=== PATIENT | female | born 1945 | race Two or more races ===

== ENCOUNTER 2019-01-04 17:20 | Inpatient (IN) | payer MEDICARE ==
[~2019-01-04] VITALS: Ht 162.6 cm; Wt 73.0 kg
[2019-01-04] MEDS ORDERED: Aspir-Trin325 MG PO (19:52)
[2019-01-04] MEDS ORDERED: METO50 PO (19:53)
[2019-01-04] MEDS ORDERED: LOSA25 PO (19:53)
[2019-01-04] MEDS ORDERED: CLOP75 PO (19:53)
[2019-01-04] MEDS ORDERED: SIMV40 PO (19:53)
[2019-01-04 22:59] LABS: Source, Urine Clean Catch
[2019-01-04 23:02] LABS: Appearance, Urine Clear (Clear); Bilirubin, Urine Neg (Neg); Blood, Urine 1+ (Neg); Color, Urine Amber (P-Yellow); Glucose Qualitative, Urine Neg (Neg); Ketones, Urine 1+ (Neg); Leukocyte Esterase, Urine 1+ (Neg); Nitrite, Urine Neg (Neg); Protein, Urine 1+ (Neg); Specific Gravity, Urine 1.015 (1.003-1.022); Urobilinogen, Urine 1+ (Normal)
[2019-01-04 23:08] LABS: Red Blood Cells, Urine 0-2 /hpf (0-2); White Blood Cells, Urine 0-2 /hpf (0-5)
[2019-01-04 23:09] LABS: Bacteria Many /hpf; Hyaline Casts 0-2 /lpf (0-2); Mucus Light (0-Heavy); Squamous Epithelial Cells Few /hpf (Few)
[2019-01-05 05:16] LABS: BASOPHILS ABSOLUTE AUTO 0.05 K/mm3 (0.00-0.23); BASOPHILS PERCENT AUTO 0 % (0-2); EOSINOPHILS ABSOLUTE AUTO 0.56 K/mm3 (0.00-0.68); EOSINOPHILS PERCENT AUTO 3 % (0-6); Hematocrit 39.5 % (33.0-51.0); Hemoglobin 12.6 g/dL (11.5-16.0); IMMATURE GRAN PERCENT AUTO 1 % (0-1); LYMPHOCYTES ABSOLUTE AUTO 1.84 K/mm3 (0.84-5.20); LYMPHOCYTES PERCENT AUTO 10 % (21-46); MONOCYTES ABSOLUTE AUTO 1.72 K/mm3 (0.16-1.47); MONOCYTES PERCENT AUTO 10 % (4-13); Mean Corpuscular HGB 31.3 pg (26.0-34.0); Mean Corpuscular HGB Conc 31.9 g/dL (31.5-36.5); Mean Platelet Volume 10.1 fL (9.1-12.4); NEUTROPHILS ABSOLUTE AUTO 13.45 K/mm3 (1.96-9.15); NEUTROPHILS PERCENT AUTO 76 % (41-73); Platelet Count 311 K/mm3 (150-400); RDW Coefficient Variation 14.1 % (11.7-14.2); RDW Standard Deviation 50.7 fL (35.1-46.3); Red Blood Cell Count 4.02 M/mm3 (3.80-5.20); White Blood Cell Count 17.72 K/mm3 (4.00-11.30)
[2019-01-05 05:17] LABS: Mean Corpuscular Volume 98 fL (80-100)
[2019-01-05 05:41] LABS: Anion Gap 7 mmol/L (6-16); Blood Urea Nitrogen 9 mg/dL (8-24); Bun/Creatinine Ratio 15.1 (12.0-20.0); CO2, Blood 24 mmol/L (21-32); Calcium, Blood 9.1 mg/dL (8.5-10.1); Chloride, Blood 103 mmol/L (98-108); Glomerular Filtration Rate >60 (60-); Glucose, Blood 101 mg/dL (70-99); Potassium, Blood 3.8 mmol/L (3.5-5.5); Sodium, Blood 134 mmol/L (136-145)
--- NOTE | 2019-01-05 07:20 | NUR ---
SHIFT SUMMARY PT ARRIVED TO ROOM APPROX 2200. NO C/O PAIN. SAYS SHE GET SOB C MOVEMENT. TELE SHOWED NSR @ 2235 BUT AT 0430 CONVERTED TO A FIB IN THE 140-150'S PER GENERAL MAINTENANCE HELPER. DR MCGARRY ORDERED 5MG IV FOR HR >130. DOSE GIVEN AND REPORT GIVEN TO DAY RN.
--- NOTE | 2019-01-05 07:30 | NUR ---
CALLED HOSPITALIST PT HR WAS 150 BPM @ 6AM. PCU STATES PT HR DOWN TO 120'S FOR 30 MIN, NOW TRENDING UP TO 138 BPM. VIEWS SCORE 5. CALLED HOSPITALIST. SHE ORDERED SCHEDULED ORAL METOPROLOL TO BE GIVEN EARLY.
--- NOTE | 2019-01-05 14:54 | NUR ---
Patient is sitting up in bed and alert. Patient shares with me her diagnosis, her landis with breast cancer and her chioce to go with a " with Dignity" plan once the pain is unbearable. Patient said that, although she has known about the cancer for years, she just told her about it last night. Patient stated that her sees the world by how everything will affect him and his comfort. I listen empathically, discuss and dying, explore orthodoxy beliefs, provide emotional support and provide prayer. Patient responded well and was quite tearful during the prayer. I will continue to remain available to patient and family.
--- NOTE | 2019-01-05 18:34 | NUR ---
SHIFT SUMMARY 73 YR OLD FEMALE ADMITTED FOR PNEUMONIA. DNR. RLL PNEUMONIA, RT PE, HYPOXIC RESP FAILURE. ON TELE: WENT FROM [facility] TO [facility] THIS MORNING. IV ANTIBIOTICS SCHEDULED. PAIN MEDICATION ADDED TODAY. INDEPENDENT IN ROOM. LIVES WITH FAMILY. SMOKER.. SOB W/ACTIVITY. REGULAR DIET. HX: BREAST CANCER METASTACIZED TO BONE & LUNGS - NOT TREATED. LOVENOX FOR DVT PREVENTION.
[2019-01-06 05:48] LABS: BASOPHILS ABSOLUTE AUTO 0.07 K/mm3 (0.00-0.23); BASOPHILS PERCENT AUTO 0 % (0-2); EOSINOPHILS ABSOLUTE AUTO 0.67 K/mm3 (0.00-0.68); EOSINOPHILS PERCENT AUTO 4 % (0-6); Hematocrit 37.9 % (33.0-51.0); Hemoglobin 12.4 g/dL (11.5-16.0); IMMATURE GRAN ABSOLUTE AUTO 0.08 K/mm3 (0.00-0.10); IMMATURE GRAN PERCENT AUTO 1 % (0-1); LYMPHOCYTES ABSOLUTE AUTO 1.15 K/mm3 (0.84-5.20); LYMPHOCYTES PERCENT AUTO 7 % (21-46); MONOCYTES ABSOLUTE AUTO 1.68 K/mm3 (0.16-1.47); MONOCYTES PERCENT AUTO 10 % (4-13); Mean Corpuscular HGB 31.4 pg (26.0-34.0); Mean Corpuscular HGB Conc 32.7 g/dL (31.5-36.5); Mean Corpuscular Volume 96 fL (80-100); Mean Platelet Volume 10.2 fL (9.1-12.4); NEUTROPHILS ABSOLUTE AUTO 12.91 K/mm3 (1.96-9.15); NEUTROPHILS PERCENT AUTO 78 % (41-73); Platelet Count 304 K/mm3 (150-400); RDW Coefficient Variation 14.1 % (11.7-14.2); RDW Standard Deviation 49.4 fL (35.1-46.3); Red Blood Cell Count 3.95 M/mm3 (3.80-5.20); White Blood Cell Count 16.56 K/mm3 (4.00-11.30)
[2019-01-06 06:13] LABS: Albumin, Blood 2.4 g/dL (3.4-5.0); Anion Gap 6 mmol/L (6-16); Blood Urea Nitrogen 7 mg/dL (8-24); Bun/Creatinine Ratio 12.5 (12.0-20.0); CO2, Blood 26 mmol/L (21-32); Chloride, Blood 104 mmol/L (98-108); Creatinine, Blood 0.56 mg/dL (0.40-1.00); Glomerular Filtration Rate >60 (60-); Glucose, Blood 104 mg/dL (70-99); Potassium, Blood 3.9 mmol/L (3.5-5.5); Sodium, Blood 136 mmol/L (136-145)
--- NOTE | 2019-01-06 06:46 | NUR ---
SHIFT SUMMARY PT A/O INDEPENDENT. NO C/O PAIN. BP LOW OUTSIDE VS PARAMETERS BP MEDS HELD PER ORDER. TELE HAS BEEN NSR C PVC'S PER COMPOSITE ENGINEER. CALL LIGHT IN REACH. SHE DOZED ON AND OFF T/O NIGHT.
[2019-01-06] MEDS ORDERED: GUAI600T33 PO (12:28)
[2019-01-06] MEDS ORDERED: Norco 5-325 Ta1 EACH PO (12:30)
[2019-01-06] MEDS ORDERED: ALBU90OI6 INH (12:31)
[2019-01-06] MEDS ORDERED: LEVO750 PO (12:32)
[2019-01-06] MEDS ORDERED: HIGH POTENCY P1 EACH PO (12:32)
[2019-01-06] MEDS ORDERED: Colace100 MG PO (12:32)
--- NOTE | 2019-01-06 12:50 | NUR ---
SUMMARY/DISCHARGE PT DISCHARGED TO HOME, PT VERBALIZED UNDERSTANDING OF DISCHARGE INSTRUCTIONS REGARDING MEDICATIONS AND FOLLOW UP NEEDED, PT TAKEN OUT SAFELY VIA WHEELCHAIR
== END 2019-01-06 12:45 | disposition home or self-care (01) | DRG 871 ==
LOC: ER 17:20 → MEDS 19:56
PROVIDERS: Internal Medicine; Nurse Practitioner Acute Care; ADMIT Hospitalist
DX: A41.9 Sepsis, unspecified organism (principal); J18.9 Pneumonia, unspecified organism; I50.42 Chronic combined systolic (congestive) and diastolic (congestive) heart failure; J44.0 Chronic obstructive pulmonary disease with (acute) lower respiratory infection; E87.1 Hypo-osmolality and hyponatremia; C78.01 Secondary malignant neoplasm of right lung; C79.51 Secondary malignant neoplasm of bone; J90 Pleural effusion, not elsewhere classified; I11.0 Hypertensive heart disease with heart failure; I48.0 Paroxysmal atrial fibrillation; I35.0 Nonrheumatic aortic (valve) stenosis; C50.919 Malignant neoplasm of unspecified site of unspecified female breast; F17.210 Nicotine dependence, cigarettes, uncomplicated
CPT/HCPCS: 36415; 80048; 80069; 81001; 83605; 84145; 85025; 87040; 87086; 94760; 94762; 96361; 96365; 99285-25; A9270-GY; J0456; J0696; J1650; J7030; J7050